=== PATIENT | male | born 2000 | race Caucasian/White ===

== ENCOUNTER → 2025-01-31 10:19 | Outpatient (BNVA) | payer BC, SELFPAY | PROVIDERS: Family Provider Nurse Practitioner Family; PCP Nurse Practitioner Family; Visit Provider Nurse Practitioner | DX: I10 Essential (primary) hypertension (principal) | CPT/HCPCS: 80053; 80061; 84443; 85025 ==

== ENCOUNTER 2025-04-20 14:17 | Outpatient (CLI) | payer BC, SELFPAY ==
--- NOTE | 2025-04-20 14:48 | US_ITS ---
WS: [id number] ULTRASOUND SOFT TISSUES medial RIGHT thigh. HISTORY: rt thigh mass COMPARISON: None available. TECHNIQUE: 2-D and color Doppler imaging is submitted. Ultrasound is directed along the medial RIGHT thigh by the patient. There is an ovoid hyperechoic mass with distortion of the fascia. This mass measures 2.3 x 2.6 x 0.9 cm. Most consistent with a benign lipoma. There is no increased vascularity. US/US soft tissue/extremity [id number] IMPRESSION: Soft tissue mass along the medial RIGHT thigh is most consistent with a benign lipoma.
--- NOTE | 2025-04-20 14:54 | CT_ITS ---
WS: [id number] CT ABDOMEN WITH AND WITHOUT CONTRAST HISTORY: NEOPLASM OF UNCERTAIN BEHAVIOR OF SKIN Contiguous single phase 5 mm axial imaging performed to the abdomen. Oral contrast has not been provided. Coronal and sagittal reformats are submitted. All CT scans at [facility] use at least one of these dose optimization techniques: automated exposure control; mA and/or kV adjustment per patient size (includes targeted exams where dose is matched to clinical indication); or iterative reconstruction. IV CONTRAST: Omnipaque 350; 100 mL IV. Oral contrast: No DLP: 338.02 mGy.cm COMPARISON: None available. Lower thorax: Benign granuloma LEFT lower lobe. No pneumonia. Heart is normal size. Small hiatal hernia. Liver/biliary system: Normal size with no intrahepatic dilatation. Gallbladder: Normal. No gallstones or wall thickening. No pericholecystic fluid. Pancreas: Normal size pancreas and pancreatic duct. No adjacent inflammation. Spleen: Normal size spleen. No mass or infarct. Adrenal glands: Normal. Right kidney: Normal. Left kidney: Normal. Aorta: Normal. Lymphadenopathy: None. Free fluid: None. GI tract: As visualized within the abdomen normal. Abdominal wall: Unremarkable abdominal wall. No hernia. Visualized osseous structures: Small Schmorl's nodes in several of the vertebral bodies at the thoracolumbar junction. No fractures. CT/CT abdomen wo/w con [id number] IMPRESSION: 1. Normal CT abdomen. 2. Small hiatal hernia.
[2025-04-20] MEDS: iohexol 350 mg/mL 500 mL Btl (per mL) IV (15:12)
== END 2025-04-20 14:18 | disposition home or self-care (01) ==
LOC: RAD 14:22
PROVIDERS: PCP Family Medicine; Visit Provider Dermatology
DX: D48.5 Neoplasm of uncertain behavior of skin (principal); R22.41 Localized swelling, mass and lump, right lower limb
CPT/HCPCS: 74170; 76882

== ENCOUNTER → 2025-07-24 14:36 | Outpatient (BNVA) | payer BC, SELFPAY | PROVIDERS: PCP Family Medicine; Visit Provider Nurse Practitioner | DX: R42 Dizziness and giddiness (principal) | CPT/HCPCS: 80053 ==